=== PATIENT | male | born 1980 | race Caucasian/White ===

== ENCOUNTER 2016-09-28 22:43 | Inpatient (IN) | payer OTHER ==
[~2016-09-28] VITALS: Ht 188 cm; Wt 80.0 kg
--- NOTE | 2016-09-28 22:49 | NUR ---
EKG IN PROGRESS.
--- NOTE | 2016-09-28 23:00 | NUR ---
XRAY AT BEDSIDE
--- NOTE | 2016-09-28 23:00 | NUR ---
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 PT WAS VERY TENSE AND BREATHING WAS LABORED UPON ARRIVAL, PT HOOKED UP TO CA MONITOR, IV ESTABLISED AND MSE INPROGRESS.
--- NOTE | 2016-09-28 23:00 | NUR ---
PT GIVEN NITRO 0.4 SL NITRO
--- NOTE | 2016-09-28 23:00 | NUR ---
MSE COMPLETED BY DR MCDONALD.
--- NOTE | 2016-09-28 23:05 | NUR ---
PT GIVEN 0.4 SL NITRO PT PAIN STILL 10/10 AFTER FIRST NITRO
--- NOTE | 2016-09-28 23:10 | NUR ---
3RD SL NITRO GIVE 0.4SL PAIN 12/11
[2016-09-28 23:15] LABS: BASOPHIL % 0.2 % (0-2); PLATELET COUNT 213 x10^3mcL (130-400); RED CELL DISTRIBUTION WIDTH 12.4 % (11.5-14.5)
--- NOTE | 2016-09-28 23:20 | NUR ---
PT MEDICATED PER MD ORDERS FOR PAIN OF 12/11
[2016-09-28 23:24] LABS: CALCIUM 8.6 mg/dL (8.5-10.1); CARBON DIOXIDE 28.6 mmol/L (21-32); CHLORIDE SERUM 102 mmol/L (98-107); GFR1 > 60 mL/min; GLUCOSE SERUM 92 mg/dL (74-106); POTASSIUM SERUM 3.5 mmol/L (3.5-5.1); SODIUM SERUM 138 mmol/L (136-145)
--- NOTE | 2016-09-28 23:28 | NUR ---
[facility]
[2016-09-28 23:37] LABS: ALKALINE PHOSPHATASE 94 U/L (46-116); ALT/SGPT 51 U/L (16-63); AST/SGOT 48 U/L (15-37); BILIRUBIN TOTAL 0.8 mg/dL (0.20-1.00); CHOLESTEROL 173 mg/dL (<200); LIPASE 138 IU/L (73-393); TOTAL PROTEIN, SERUM 7.1 g/dL (6.4-8.2); TRIGLYCERIDES 138 mg/dL (<150)
--- NOTE | 2016-09-28 23:37 | NUR ---
PT RETURNED FROM CT WITHOUT INCIDENCE.
[2016-09-28 23:39] LABS: CHOLESTEROL/HDL RATIO 2.1; HDL CHOLESTEROL 82 mg/dL (40-60)
[2016-09-28 23:54] LABS: FREE T4 0.88 ng/dL (0.76-1.46); FREE THYROXINE INDEX 2.5 ug/dL (1.4-4.5); T4(THYROXINE) 6.4 ug/dL (4.7-13.3)
[2016-09-29] VITALS (8 sets, daily range): BP systolic 105–135; BP diastolic 57–80
--- NOTE | 2016-09-29 00:29 | NUR ---
PT STATING THAT HIS PAIN HAS DECREASED FROM 10/10 TO 2/10, PT IN POSITION OF COMFORT, RESP E/U, PT IN NAD NOTED AT THIS TIME.
[2016-09-29 00:34] LABS: T3 TOTAL 1.17 ng/mL
[2016-09-29 00:50] LABS: microscopic required? NO
[2016-09-29 01:09] LABS: urine erythrocyte NEGATIVE (NEGATIVE)
--- NOTE | 2016-09-29 01:18 | NUR ---
PT GAVE VERBAL OK TO GIVE INFORMATION OVER THE PHONE TO HIS GIRLFRIEND MYRON
--- NOTE | 2016-09-29 01:24 | NUR ---
REPORT GIVEN TO GAEL TO ASSUME CARE OF PT.
--- NOTE | 2016-09-29 01:29 | NUR ---
RECEIVED FROM ER,VIA [facility].PUT IN ROOM 232 B AND MADE COMFORTABLE.DR ROGERS AT BEDSIDE.PATIENT IS ALERT AND ORIENTED,SAYS NO MEDICAL HX,BUT HE SMOKES A LOT AND DRINK A LOT.NO ALLERGY.BREATHING EASY.AMBULATORY.NS INFUSING,WILL CHECKE ORDER FOR RATE.TEL 34 SR.HAS SKIN REDNESS ON LEFT LEG,FRONT OF ENTIRE LEG.WILL TAKE PICTURE.DR ROGERS SSEN IT.SCD WILL APPLY ON RIGHT LEG,NO REDNESS.UA NEGATIVE,DONE IN ER.CALM AND ANSWER QUESTIONS WELL.WILL FOLLOW UP ADMIT ORDER.CALL LITE IN REACH.WILL INITIATE PLAN OF CARE.
[2016-09-29 01:33] LABS: AMPHETAMINE QUAL UR POSITIVE (NEG <=1000)
--- NOTE | 2016-09-29 01:39 | NUR ---
PT TRANSFERRED TO TELE BED 232B VIA [facility] ON CM WITH CARRIE HALL AND EMT SHANNON AT PT SIDE. PT A&OX4, NO ACUTE DISTRESS NOTED, RESP EVEN AND UNLABORED, TRANSFERRED WITHOUT INCIDENCE.
[2016-09-29 02:12] LABS: MAGNESIUM 1.9 mg/dL (1.8-2.4); PHOSPHOROUS 4.1 mg/dL (2.5-4.9)
--- NOTE | 2016-09-29 02:22 | NUR ---
PATIENT ATB INITIATED,PO MEDS INITIATED.
--- NOTE | 2016-09-29 02:48 | NUR ---
PATIENT DECLINE PNEUMO VACCINE,DOES NOT BELIEVE IN IT.
--- NOTE | 2016-09-29 02:49 | NUR ---
PATIENT NOW ON ETOH PROTOCOL.JUST GIVEN ATIVAN,STARTING TO GET RESTLESS,X [address] ROGERS.VIVEK ASSESS NEURO.SZ PRECAUTION FOR NOW.PADDED RAILS NEEDED.
--- NOTE | 2016-09-29 02:51 | NUR ---
REDNESS ON LEFT LEG PICTURE TAKEN,DR ROGERS ORDERED OINTMENT TO LEG REDNESS.
--- NOTE | 2016-09-29 05:08 | NUR ---
I AND O MEASURED.NS AT 100 CC/ HOUR CONTINOUS.PICTURE LEFT LEG REDNESS SEEN BY DR ROGERS.WILL ENDORSE TO NEXT SHIFT.CALL LIGHT IN REACH.
[2016-09-29 06:42] LABS: BASOPHIL % 0.1 % (0-2); PLATELET COUNT 158 x10^3mcL (130-400)
--- NOTE | 2016-09-29 07:30 | NUR ---
RECEIVED PT IN NO ACUTE DISTRESS. SEIZURE PRECAUTIONS IN PLACE. RESP EVEN AND UNLABORED ON RA. NO SOB NOTED. RESTING WITH EYES CLSOED, APPEARS COMFORTABLE, NO PAIN NOTED. IVF INFUSING. HOB ELEVATED. BED IN LOWEST POSITION, CALL LIGHT WITHIN REACH. WILL CONTINUE TO MONITOR.
[2016-09-29 07:33] LABS: CALCIUM 7.8 mg/dL (8.5-10.1); CHLORIDE SERUM 101 mmol/L (98-107); CREATININE SERUM 0.7 mg/dL (0.7-1.3); GFR1 > 60 mL/min; GLUCOSE SERUM 76 mg/dL (74-106); POTASSIUM SERUM 3.6 mmol/L (3.5-5.1); SODIUM SERUM 135 mmol/L (136-145)
[2016-09-29 07:35] LABS: ALBUMIN 3.3 g/dL (3.4-5.0)
--- NOTE | 2016-09-29 13:10 | NUR ---
PT RESTING IN BED. NO ACUTE DISTRESS. C/O ACHING CP RADIATING TO R SHOULDER, MEDICATED ORDERED. IVF INFUSING. BED IN LOWEST POSITION, CALL LIGHT WITHIN REACH. WILL CONTINUE TO MONITOR.
--- NOTE | 2016-09-29 18:20 | NUR ---
PT RESTING IN BED. NO ACUTE DISTRESS. APPEARS COMFORTABLE, NO PAIN NOTED. SEIZURE PRECAUTIONS IN PLACE. IVF INFUSING. BED IN LOWEST POSITION, CALL LIGHT WITHIN REACH. WILL ENDORSE TO INCOMING SHIFT.
--- NOTE | 2016-09-29 20:00 | NUR ---
RECEIVED PT IN BED, COMPLAINING OF GEN. BODY PAIN, 10/11 REQUESTING PAIN MED. WILL MEDICATE ORDERED.ALERT AND ORIENTED. RESP. EVEN AND UNLABORED. ON ROOM AIR, NO DISTRESS NOTED. SR ON THE MONITOR, DENIES CP OR PRESSURE. ABD. SOFT, NON DISTENDED, BS ACTIVE, NO N/V NOTED. IVF, NS AT 100ML/HR, INTACT AND INFUSING VIA RAC, SITE CLEAR. ON SEIZURE PREC. NO ACTIVITY NOTED AT THIS TIME. CALL LIGHT WITHIN REACH. WILL CONTINUE TO MONITOR.
--- NOTE | 2016-09-29 20:30 | NUR ---
TORADOL IV GIVEN ORDERED FOR PAIN. WILL CONTINUE TO MONITOR.
--- NOTE | 2016-09-30 01:17 | NUR ---
APPEARS ASLEEP, NO DISTRESS NOTED. WILL CONTINUE TO MONITOR.
--- NOTE | 2016-09-30 03:56 | NUR ---
AWAKE. COMPLAINING OF HEADACHE AND CHEST PAIN,10/11, REQUESTING PAIN MED. MEDICATED WITH TORADOL IV ORDERED. REMAIN SR ON THE MONITOR. WILL CONTINUE TO MONITOR.
[2016-09-30 05:29] VITALS: BP 112/72
[2016-09-30 06:18] LABS: BASOPHIL % 0.3 % (0-2); PLATELET COUNT 148 x10^3mcL (130-400); RED CELL DISTRIBUTION WIDTH 12.4 % (11.5-14.5)
[2016-09-30 06:22] LABS: CALCIUM 8.5 mg/dL (8.5-10.1); CARBON DIOXIDE 24.8 mmol/L (21-32); CHLORIDE SERUM 105 mmol/L (98-107); CREATININE SERUM 0.8 mg/dL (0.7-1.3); GFR1 > 60 mL/min; GLUCOSE SERUM 113 mg/dL (74-106); PHOSPHOROUS 3.2 mg/dL (2.5-4.9); POTASSIUM SERUM 3.8 mmol/L (3.5-5.1); SODIUM SERUM 140 mmol/L (136-145)
--- NOTE | 2016-09-30 06:48 | NUR ---
NO COMPLAINTS NOTED AT THIS TIME. AFEBRILE AND VITAL SIGNS STABLE. RESP. EVEN AND UNLABORED. NO DISTRESS NOTED. NO SEIZURE ACTIVITY NOTED. DUE MEDS GIVEN ORDERED, CYNDY. WELL. IVF INTACT AND INFFUSING , SITE CLEAR. KEPT COMFORTABLE. WILL ENDORSE TO INCOMING NURSE.
--- NOTE | 2016-09-30 08:00 | NUR ---
DR MADRIGAL MADE ROUNDS WITH OTHER MEDICAL STAFF THIS MORNING. UPDATE PLAN OF CARE.
--- NOTE | 2016-09-30 08:00 | NUR ---
PT IS AWAKE AND ALERT. IV FLUIDS INFUSING WELL, CONTINUED ORDERED. WILL CONTINUE PLAN OF CARE. VOIDING WELL, DENIES ANY PAIN AT THIS TIME. CALL LIGHT WITHIN REACH.
[2016-09-30 09:09] VITALS: BP 136/95
[2016-09-30] MEDS ORDERED: LORAZEPAM1 MG PO (11:20)
[2016-09-30] MEDS ORDERED: B-1100 MG PO (11:21)
[2016-09-30] MEDS ORDERED: NATURE'S BLEND F1 MG PO (11:21)
[2016-09-30] MEDS ORDERED: BUSPIRONE HCL10 MG PO (11:22)
[2016-09-30] MEDS ORDERED: CLINDAMYCIN HC300 MG PO (11:24)
[2016-09-30] MEDS ORDERED: LEVAQUIN750 MG PO (11:24)
[2016-09-30] MEDS ORDERED: LAC PO (11:25)
[2016-09-30 12:29] VITALS: BP 136/95
--- NOTE | 2016-09-30 13:30 | NUR ---
PT. WENT HOME W/ STABLE CONDITION AMBULATORY ACC. W/ HIS FATHER.DISCHARGED INSTRUCTION AND PRESCRIPTION GIVEN AND DISCUSSED TO PT. AND VERBALIZED UNDERSTANDING OF INSTRUCTIONS GIVEN,NO ACUTE DISTRESS NOTED.ESCORTED BY RAGHAVENDRA IN THE LOBBY.
== END 2016-09-30 13:27 | disposition home or self-care (01) | DRG 137 ==
LOC: ED 22:43 → DU 09-29 00:22
PROVIDERS: Specialist; ADMIT Family Medicine
DX: J69.0 Pneumonitis due to inhalation of food and vomit (principal); N17.0 Acute kidney failure with tubular necrosis; G92 Toxic encephalopathy; K70.0 Alcoholic fatty liver; L03.116 Cellulitis of left lower limb; M94.0 Chondrocostal junction syndrome [Tietze]; K72.90 Hepatic failure, unspecified without coma; F10.129 Alcohol abuse with intoxication, unspecified; F15.10 Other stimulant abuse, uncomplicated; F14.10 Cocaine abuse, uncomplicated; F12.10 Cannabis abuse, uncomplicated; R21 Rash and other nonspecific skin eruption; F17.210 Nicotine dependence, cigarettes, uncomplicated; Y90.9 Presence of alcohol in blood, level not specified; F32.9 Major depressive disorder, single episode, unspecified; F41.1 Generalized anxiety disorder; Z68.22 Body mass index [BMI] 22.0-22.9, adult; Z71.51 Drug abuse counseling and surveillance of drug abuser; Z79.899 Other long term (current) drug therapy
CPT/HCPCS: 83880; 84439; C9113; G0480; J1885; J1956; J2060; J2405; J3010; J3490; J7030; J7620; Q0092; Q9967

== ENCOUNTER 2017-07-17 17:37 | Emergency (ER) | payer OTHER ==
[~2017-07-17] VITALS: Ht 188 cm; Wt 84.4 kg
[~2017-07-17 17:37] MED LIST: B-1100 MG PO; BUSPIRONE HCL10 MG PO; CLINDAMYCIN HC300 MG PO; LAC PO; LEVAQUIN750 MG PO; LORAZEPAM1 MG PO; NATURE'S BLEND F1 MG PO
[2017-07-17 17:40] VITALS: Ht 188 cm; Wt 84.4 kg
[2017-07-17 18:45] VITALS: BP 127/90
== END 2017-07-17 19:04 | disposition home or self-care (01) ==
LOC: ED 17:37
DX: S51.811A Laceration without foreign body of right forearm, initial encounter (principal); W26.8XXA Contact with other sharp object(s), not elsewhere classified, initial encounter; Y93.89 Activity, other specified; Y92.89 Other specified places as the place of occurrence of the external cause; Y99.8 Other external cause status
CPT/HCPCS: J2001; J2270; J2405